=== PATIENT | male | born 1995 | race Caucasian/White ===

== ENCOUNTER 2022-04-14 12:23 | Emergency (ER) | payer BC, SELFPAY ==
[2022-04-14 14:06] VITALS: BP 163/86; PULSE 106; RESP 16; TEMP 37.7; O2SAT 97
--- NOTE | 2022-04-14 14:44 | ED.URI ---
HPI - URI/Sore Throat General Chief Complaint: Upper Respiratory Infection Stated Complaint: pink eye, sore throat, cough,fever Time Seen by Provider: 04/14/22 14:40 History of Present Illness HPI Narrative: 26-year-old male presented for complaint of sore throat and fever for 5 days. Endorses occasional cough and decreased appetite. Endorses at the onset of fever of 103, today at home was 100.4. He denies sick contacts. He denies shortness of breath, wheezing, nausea, vomiting or diarrhea. Patient also diagnosed with pink eye via telemed and is taking abx eye drops. Related Data Home Medications Medication Instructions Recorded Confirmed insulin pump cart,cont inf,BT 04/14/22 04/14/22 (Omnipod Dash Pods (Gen 4) subcutaneous cartridge) ofloxacin 0.3 % eye drops 1 drp EACH EYE DAILY 04/14/22 04/14/22 Allergies Allergy/AdvReac Type Severity Reaction Status Date / Time No Known Allergies Allergy Verified 04/14/22 14:10 Review of Systems Review of Systems: per HPI Exam Narrative: GENERAL: Ill-appearing, no acute distress. EYES: conjunctivae clear ENT: Mucous membranes moist. TMs pearly hinojosa with normal light reflex bilaterally; no tragal tenderness. Oropharynx erythematous Tonsils enlarged and without exudate. No drooling, no hoarseness, no trismus, uvula midline. No tripod positioning, hot potato voice, or soft palate swelling. NECK: Supple. No lymphadenopathy CHEST: Clear to auscultation, breath sounds equal. No respiratory distress, speaks in full sentences. HEART: Regular rate and rhythm. No murmur heard. SKIN: Warm, dry, no rash. NEURO: Alert and oriented x3. Course Course Emergency Course: Patient is aware of diagnosis, understands and agrees to treatment plan. Anticipatory guidance given. Patient agrees to follow-up as directed and is aware of reasons to seek care at the emergency department. Portions of this record may have been created with voice recognition software Level of Care: Express Care Visit Vital Signs Vital signs: Vital Signs Temperature 99.8 F H 04/14/22 14:06 Pulse Rate 106 H 04/14/22 14:06 Respiratory Rate 16 04/14/22 14:06 Blood Pressure 163/86 H 04/14/22 14:06 Pulse Oximetry 97 04/14/22 14:06 Oxygen Delivery Room Air 04/14/22 14:06 Temperature 99.8 F H 04/14/22 14:06 Pulse Rate 106 H 04/14/22 14:06 Respiratory Rate 16 04/14/22 14:06 Blood Pressure 163/86 H 04/14/22 14:06 Pulse Oximetry 97 04/14/22 14:06 Oxygen Delivery Room Air 04/14/22 14:06 MDM - URI/Sore Throat MDM Narrative Medical decision making narrative: flu negative; strep negative; result reviewed with pt. Advise supportive treatments. Patient is appropriate for outpatient treatment and follow-up. Differential Diagnosis Differential diagnosis: Likely upper respiratory infection, viral infection and pharyngitis Lab Data Labs: Influenza A Screen Negative Reference Range: Negative Influenza B Screen Negative Reference Range: Negative Strep Screen Presumptive Negative *(Reference Range: Negative)* Discharge Plan Discharge Clinical Impression: Upper respiratory infection Patient Disposition: Home, Self-Care Condition: Stable Instructions: Viral Syndrome (ED) Additional Instructions: Rapid strep swab was negative today You will be notified in a few days if the culture comes back positive for strep, and appropriate antibiotics will be called in at that time. if symptoms are due to a viral illness, it is not treated with antibiotics. Viral symptoms can be present for up to 10-14 days. Recommend Flonase spray and Zyrtec for sinus congestion Cough syrup may cause drowsiness; avoid driving or take it at night time. Tylenol every 8 hours as needed for pain/fev
== END 2022-04-14 15:28 | disposition home or self-care (01) ==
PROVIDERS: Emergency Provider Nurse Practitioner Family; PCP Internal Medicine
DX: J06.9 Acute upper respiratory infection, unspecified (principal)
CPT/HCPCS: 87081; 87804; 87880; 99213; G0463

== ENCOUNTER 2024-06-05 14:46 | Emergency (ER) | payer OTHER, SELFPAY ==
--- NOTE | ~2024-06-05 | XR_ITS ---
CHEST RADIOGRAPH, PA AND LATERAL CLINICAL HISTORY: acute cough . COMPARISON: None available TECHNIQUE: PA and lateral views of the chest. FINDINGS The cardiomediastinal silhouette is unremarkable. Patchy opacification of the left mid to upper lung field, findings suggesting an early infiltrate. The remainder of the lungs are clear. IMPRESSION: Early infiltrate within the left mid to upper lung field, as detailed above. Reviewed, dictated and finalized at location A. ER SECURITY ADMINISTRATOR
[2024-06-05 15:03] VITALS: BP 155/95; PULSE 107; RESP 16; TEMP 37.6; O2SAT 99
--- NOTE | 2024-06-05 15:24 | ED.URI ---
HPI - URI/Sore Throat General Chief Complaint: Upper Respiratory Infection Stated Complaint: COUGH/FEVER/BODY ACHES/HEADACHE Time Seen by Provider: 06/05/24 15:20 Source: patient, RN notes reviewed and old records reviewed Mode of arrival: ambulatory Limitations: no limitations History of Present Illness HPI Narrative: 28 year old male presents to [facility] care with complaints of having low grade fevers, body aches, cough and headache for the past 3 days. Patient reports that he had positive home test for influenza A on 05/17/2024 and received Tamiflu. Patient reports concern that he might have pneumonia and states that he had pneumonia the end of March. Patient is Type I diabetic and is on insulin pump.Patient reports that he has used his Albuterol nhaler. MD elicited complaint: fever, cough and other (headache, body aches,) Pertinent past history: pneumonia and other (Diabetic Type I) Onset (ago): day(s) (3) Severity: moderate Able to tolerate fluids by mouth: Yes Treatments prior to arrival: other (used Albuterol inhaler) Related Data Home Medications ?Medication ?Instructions ?Recorded ?Confirmed ?Last Taken ?Type insulin pump cart,cont inf,BT 04/14/22 06/05/24 Unknown History (Omnipod Dash Pods (Gen 4) subcutaneous cartridge) atorvastatin 40 mg tablet mg 06/05/24 Unknown History insulin aspart U-100 100 unit/mL 06/05/24 Unknown History subcutaneous solution (Novolog U-100 Insulin aspart) losartan .ROUTE 06/05/24 Unknown History semaglutide 7 mg tablet (Rybelsus) mg PO 06/05/24 Unknown History Allergies Allergy/AdvReac Type Severity Reaction Status Date / Time No Known Allergies Allergy Verified 06/05/24 14:59 Review of Systems Review of Systems: CONSTITUTIONAL: Reports malaise, chills, sweats, or fever. EYES: Denies visual changes, redness, or discharge. ENT: Reports rhinorrhea, congestion, sinus pain,no otalgia and no sore throat. CARDIOVASCULAR: Denies chest pain, palpitations, or edema. RESPIRATORY: Reports cough.? Denies acute dyspnea. GASTROINTESTINAL: Denies abdominal pain, nausea, vomiting, diarrhea SKIN: Denies rash or itching. MUSCULOSKELETAL: reports myalgia. NEUROLOGIC:Reports headache. All systems reviewed & are unremarkable except as noted in HPI and below PMFSH Past Medical History Medical History Pneumonia Hypertension Hyperlipidemia Type I diabetes mellitus Social History Social History (Updated 06/08/24 @ 08:03 by Danni Aguilar NP) Smoking status: Never smoker Alcohol intake: current Alcohol use details: rare social Substance use type: does not use Living arrangements: with family Gender identity (if verbalized by the patient): Male Comments At time of signature, agree with nursing past medical, surgical, social and family history. There is no relevant family history pertinent to the presenting complaint Exam Narrative: GENERAL: Ill-appearing, well-nourished, and in no acute distress. HEAD: Normocephalic EYES: PERRLA, conjunctivae clear ENT: Nares clear, turbinates edematous and erythematous, clear discharge. Mucous membranes moist. TM pearly hinojosa with dull light reflex bilaterally; no tragal tenderness. Oropharynx erythematous without lesions. Tonsils not enlarged and without exudate, no drooling, no hoarseness, no trismus, uvula midline.post nasal drainage noted NECK: Supple. No lymphadenopathy CHEST: Coarse breath sound left lobe, breath sounds equal. No wheezing, rhonchi, rales, or stridor. No respiratory distress, speaks in full sentences.dry cough SAO2 99% on room air no tachypnea HEART: Regular rate and rhythm. No murmur heard. SKIN: Warm, dry, no rash. NEURO: Alert and oriented x3. PSYCH: Normal mood and affect Course Course Emergency Course: Patient is aware of diagnosis, understands and agrees to treatment plan.? Anticipatory guidance given.? Patient agrees to follow-up as directed and is aware of reasons to seek care at the emergency department. Portions of this record may have been created with voice recognition software Level of Care: Express Care Visit Vital Signs Vital signs: Vital Signs Temperature 37.6 C 06/05/24 15:03 Pulse Rate 107 H 06/05/24 15:03 Respiratory Rate 16 06/05/24 15:03 Blood Pressure 155/95 H 06/05/24 15:03 Pulse Oximetry 99 06/05/24 15:03 Temperature 38.2 C H 06/05/24 15:28 Pulse Rate 107 H 06/05/24 15:03 Respiratory Rate 16 06/05/24 15:03 Blood Pressure 155/95 H 06/05/24 15:03 Pulse Oximetry 99 06/05/24 15:03 Reviewed MDM - URI/Sore Throat MDM Narrative Medical decision making narrative: Differential diagnosis considered: Walden virus, strep pharyngitis, allergic rhinitis, upper respiratory tract infection, sinusitis, rhinosinusitis, nasopharyngitis. viral pharyngitis, otitis media, otitis externa, pneumonia, bronchitis, viral cough syndrome, viral syndrome, and influenza.? Exam findings show no acute concerns or changes; patient is non-toxic appearing and is in no distress.? Patient is appropriate for outpatient treatment and follow-up. Differential Diagnosis Differential diagnosis: Likely upper respiratory infection, sinusitis, viral infection, bronchitis and other (COVID acute cough, pneumonia) Medical Records Attestation: I reviewed the patient's medical records. Lab Data Attestation: I reviewed the patient's lab results. Lab results narrative: COVID antigen negative Labs: Lab Results 06/05/24 Range/Units 15:29 POC SARS CoV-2 Ag Negative (Negative) Imaging Data Attestation: I personally reviewed and interpreted this imaging study as follows: My impression: early infiltrate within the left mid to upper lung [place] Radiologist's impression: [address] [place] [address] XRay Report Signed Patient: Jayro Castellanos : 1995 MR#: [id number] Age: 28 Acct:[id number] Loc: [id number] ADM Date: 06/05/24Attending Dr: Ordering Physician: Danni Aguilar APRN Date of Service: 06/05/24 Procedure(s): XR chest 2V Accession Number(s): [id number] cc: Arnie, Maurice Gabriel MD; Danni Aguilar APRN~ CHEST RADIOGRAPH, PA AND LATERAL CLINICAL HISTORY: acute cough . COMPARISON: None available TECHNIQUE: PA and lateral views of the chest. FINDINGS The cardiomediastinal silhouette is unremarkable. Patchy opacification of the left mid to upper lung field, findings suggesting an early infiltrate. The remainder of the lungs are clear. IMPRESSION: Early infiltrate within the left mid to upper lung field, as detailed above. Reviewed, dictated and finalized at location A. SCOPY REGISTERED NURSE Please be advised this is a medical document. It is intended for nopl-ky-ibdu communication. It is written in medical language and may contain unfamiliar abbreviations or verbiage. Medical documents are intended to carry relevant information, facts as evident, and the clinical opinion of the practitioner at the time of the encounter. This report may have been done utilizing a voice recognition system. Attempts have been made to correct errors. However, there may be uncorrected grammatical, spelling, and recognition errors present. The file time of this note does not necessarily represent the time of service. Dictated By: Mariola Agarwal MD 06/05/24 1609 Signed By: <Electronically signed by Mariola Agarwal MD in OV> Critical Care Time Critical Care Time Critical Care Time: No Discharge Plan Discharge Clinical Impression: Pneumonia Qualifiers: Pneumonia type: due to unspecified organism Laterality: left Lung location: upper lobe of lung Qualified Code(s): J18.9 - Pneumonia, unspecified organism Patient Disposition: Home, Self-Care Condition: Stable Instructions: Antibiotic Form, Pneumonia (ED) Additional Instructions: Increase fluids especially juices and water Fedo-pwq-lksxxod cough and cold medicine of your choice for your symptoms Tylenol or ibuprofen alternate that way you can be medicated every 4 hours as needed for temp or pain Cough tablets as directed for cough--do not bite, chew or suck on--swallow whole Continue your inhaler/nebulizer as directed check urine for ketones heat to the face 20-30 minutes 4-6 times a day for pain Salt water gargles, throat lozenges or throat sprays as desired Antibiotic as directed--finished the medication If your symptoms persist, change or worsen significantly before you can contact your personal physician then please, without delay, go to the emergency department for further evaluation. Follow-up with PCP in 7-10 days or sooner if needed Follow up with PCP soon in regards to your blood pressure which is elevated above threshold for referral. Blood pressure above 120/80 may indicate pre-hypertension. 155/90 monitor your fevers closely Patient Language: Georgian Prescriptions: New cefdinir 300 mg capsule 300 mg PO Q12H Qty: 20 0RF azithromycin 250 mg tablet See Rx Instructions .ROUTE .COMPLEX Qty: 6 0RF Rx Instructions: For 250 mg dose pack: take 500 mg today (day 1), then 250 mg for 4 days (days 2-5) benzonatate 200 mg capsule 200 mg PO TID PRN (Reason: cough) Qty: 20 0RF No Action (DME) Omnipod Dash Pods (Gen 4) Cartridge SUBCUT atorvastatin 40 mg tablet insulin aspart U-100 [Novolog U-100 Insulin aspart] 100 unit/mL solution losartan .ROUTE Rybelsus 7 mg tablet PO Follow-up/Referrals: Arnie,Bishnu Gabriel MD [Primary Care Provider] - Stand Alone Forms: Work/School Release IP Time of Disposition: 16:25 Quality [place] Coma Scale Eyes: Open Verbal: Oriented and Alert Motor: Follows Commands [place] Coma Total Score: 15
[2024-06-05 15:28] VITALS: TEMP 38.2
[2024-06-05 15:30] LABS: EDCOVIDSCREEN Negative (Negative)
--- NOTE | 2024-06-05 16:36 | PC.NURSE ---
1611 Patient notified waiting for CXR report; patient lying on stretcher-resting. Blood sugar 202 per pts continuous glucose monitoring.
== END 2024-06-05 16:35 | disposition home or self-care (01) ==
PROVIDERS: Emergency Provider Registered Nurse; PCP Internal Medicine
DX: J18.9 Pneumonia, unspecified organism (principal); Z20.822 Contact with and (suspected) exposure to COVID-19; I10 Essential (primary) hypertension; E78.5 Hyperlipidemia, unspecified; E10.9 Type 1 diabetes mellitus without complications; Z79.4 Long term (current) use of insulin; Z96.41 Presence of insulin pump (external) (internal)
CPT/HCPCS: 71046; 87426; 99213; G0463

== ENCOUNTER 2024-07-30 12:21 | Emergency (ER) | payer OTHER, SELFPAY ==
--- NOTE | ~2024-07-30 | XR_ITS ---
EXAMINATION: XR chest 2V DATE: 07/30/2024 13:00 INDICATION: One week of cough TECHNIQUE: PA and lateral views of the chest were obtained. COMPARISON: Chest radiograph dated 06/05/2024 FINDINGS: The lungs are clear with no focal airspace opacities, pulmonary edema, pleural effusion or pneumothor ax. The cardiomediastinal silhouette is normal. Visualized bones and soft tissues are unremarkable. IMPRESSION: 1. No acute cardiopulmonary disease. Reviewed, dictated and finalized at location A.
--- NOTE | 2024-07-30 12:53 | PC.NURSE ---
1250 Blood sugar 268 while in triage via insulin pump.
[2024-07-30 13:22] VITALS: BP 129/84; PULSE 81; RESP 20; TEMP 36.4; O2SAT 98
--- NOTE | 2024-07-30 15:11 | ED.URI ---
HPI - URI/Sore Throat General Chief Complaint: Upper Respiratory Infection Stated Complaint: COUGH/CONGESTION Time Seen by Provider: 07/30/24 12:46 Source: patient and RN notes reviewed Mode of arrival: ambulatory Limitations: no limitations History of Present Illness HPI Narrative: Patient presents today with a one-week history of productive cough, fatigue, sore throat. Denies fever or shortness of breath. He has tried no retm-kph-rehjrmo treatment prior to arrival. Patient is insulin-dependent diabetic. Current blood sugar on his continuous monitor is 268. 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 Patient has history of 2 episodes of pneumonia in the last 6, last was 2 months ago. Related Data Home Medications ?Medication ?Instructions ?Recorded ?Confirmed ?Last Taken ?Type insulin pump cart,cont inf,BT 04/14/22 06/05/24 Unknown History (Omnipod Dash Pods (Gen 4) subcutaneous cartridge) atorvastatin 40 mg tablet mg 06/05/24 Unknown History insulin aspart U-100 100 unit/mL 06/05/24 Unknown History subcutaneous solution (Novolog U-100 Insulin aspart) losartan .Route 06/05/24 Unknown History semaglutide 7 mg tablet (Rybelsus) mg PO 06/05/24 Unknown History Allergies Allergy/AdvReac Type Severity Reaction Status Date / Time No Known Allergies Allergy Verified 07/30/24 12:48 Review of Systems Review of Systems: CONSTITUTIONAL: Denies body aches, fever, chills, or sweats.+ fatigue EYES: Denies visual changes, redness, or discharge. ENT: Denies rhinorrhea, congestion, or otalgia.+ sore throat CARDIOVASCULAR: Denies chest pain, palpitations, or edema. RESPIRATORY: Denies dyspnea.+ cough GASTROINTESTINAL: Denies abdominal pain, nausea, vomiting, or diarrhea. GENITOURINARY: Denies dysuria or hematuria. SKIN: Denies rash, itching, or wounds. MUSCULOSKELETAL: Denies back pain, joint pain, or myalgia. NEUROLOGIC: Denies headache, numbness, tingling, or weakness. PSYCH: Denies depression or anxiety. [facility] Past Medical History Medical History Pneumonia Hypertension Hyperlipidemia Type I diabetes mellitus Social History Social History Smoking status: Never smoker Alcohol intake: current Alcohol use details: rare social Substance use type: does not use Living arrangements: with family Gender identity (if verbalized by the patient): Male Comments At time of signature, I have reviewed and agree with nursing past medical, surgical, social and family history unless otherwise noted. Please see nursing chart for further information. There is no relevant family history pertinent to the presenting complaint Exam Narrative: GENERAL: Mildly ill-appearing, well-nourished, and in no acute distress. Slightly pale HEAD: Normocephalic, atraumatic. EYES: EOMI. No redness or drainage. Conjunctivae normal. ENT: Mucous membranes pink and moist. Nares clear. No rhinorrhea. TMs normal bilaterally. Throat normal. Uvula midline. NECK: Normal AROM. Supple. No lymphadenopathy. CHEST: No respiratory distress. Few slight crackles in RLL, otherwise clear. HEART: Regular rate and rhythm. No murmur appreciated. EXTREMITIES: Normal range of motion. No edema. SKIN: Warm, dry, no rash. Capillary refill normal. Normal skin turgor. NEURO: No focal deficits. Alert and oriented x3. Gait steady. PSYCH: Normal affect. No signs of depression or anxiety. Course Course Level of Care: Express Care Visit Vital Signs Vital signs: Vital Signs Temperature 97.6 F 07/30/24 13:22 Pulse Rate 81 07/30/24 13:22 Respiratory Rate 20 07/30/24 13:22 Blood Pressure 129/84 07/30/24 13:22 Pulse Oximetry 98 07/30/24 13:22 Temperature 97.6 F 07/30/24 13:22 Pulse Rate 81 07/30/24 13:22 Respiratory Rate 20 07/30/24 13:22 Blood Pressure 129/84 07/30/24 13:22 Pulse Oximetry 98 07/30/24 13:22 Reviewed MDM - URI/Sore Throat MDM Narrative Medical decision making narrative: Chest x-ray negative. Symptoms likely viral in etiology. Discussed starting some Mucinex to help break up chest congestion as well as taking Tylenol for discomfort. Anticipatory guidance given. ED precautions given. Differential Diagnosis Differential diagnosis: Likely upper respiratory infection, viral infection, bronchitis and other (Pneumonia) Imaging Data Radiologist's impression: ITS Impressions Chest X-Ray 07/30/24 13:07 IMPRESSION: 1. No acute cardiopulmonary disease. Critical Care Time Critical Care Time Critical Care Time: No Discharge Plan Discharge Clinical Impression: Acute lower respiratory infection Patient Disposition: Home Condition: Stable Instructions: Acute Bronchitis (ED) Additional Instructions: Your chest x-ray is negative for pneumonia. Your symptoms are likely due to a viral illness, which is not treated with antibiotics. Virus symptoms can last for up to 7-14 days. Take Tylenol for pain or fever. Consider starting some Mucinex to help break up any chest congestion. Rest and stay hydrated. Follow up with your PCP in 3-5 days if symptoms are not improving. Go to the ER immediately if you develop a new onset fever greater than 100.3, shortness of breath, chest pain, difficulty swallowing, or any other concerning symptoms. Your blood pressure was elevated above 120/80 today at Urgent Care. This puts you above the threshold for follow up. Please schedule a followup visit with your personal physician as soon as possible, for further evaluation and treatment. Even blood pressure exceeding 120/80 may indicate pre-hypertension. Patient Language: Trinidadian Prescriptions: No Action (DME) Omnipod Dash Pods (Gen 4) Cartridge SUBCUT atorvastatin 40 mg tablet insulin aspart U-100 [Novolog U-100 Insulin aspart] 100 unit/mL solution losartan .Route Rybelsus 7 mg tablet PO Follow-up/Referrals: Arnie,Bishnu Gabriel MD [Primary Care Provider] - Time of Disposition: 13:21
== END 2024-07-30 13:26 | disposition home or self-care (01) ==
PROVIDERS: Emergency Provider Nurse Practitioner; PCP Internal Medicine
DX: J22 Unspecified acute lower respiratory infection (principal); I10 Essential (primary) hypertension; E78.5 Hyperlipidemia, unspecified; E10.9 Type 1 diabetes mellitus without complications; Z79.4 Long term (current) use of insulin
CPT/HCPCS: 71046; 99213; G0463

== ENCOUNTER 2025-02-03 16:10 | Outpatient (CLI) | payer OTHER, SELFPAY ==
--- NOTE | ~2025-02-03 | XR_ITS ---
EXAMINATION: XR chest 2V, 02/03/2025 16:19 CDT HISTORY: Encounter for general adult medical examination with abnorma COMPARISON: No comparisons available. Technique: 2 views obtained. Findings: The lungs are clear, no effusion. No pneumothorax. Heart is normal size. Mediastinal and hilar contours are within normal limits. Bony thorax no acute abnormality. Impression: No acute cardiopulmonary abnormality. Reviewed, dictated and finalized at location P. Impression: No acute cardiopulmonary abnormality.
== END 2025-02-03 16:11 | disposition home or self-care (01) ==
LOC: MICIMG 16:12
PROVIDERS: PCP Internal Medicine; Visit Provider Internal Medicine
DX: Z00.01 Encounter for general adult medical examination with abnormal findings (principal); J20.6 Acute bronchitis due to rhinovirus; J06.9 Acute upper respiratory infection, unspecified; J02.9 Acute pharyngitis, unspecified; Z96.41 Presence of insulin pump (external) (internal); G47.61 Periodic limb movement disorder; E78.2 Mixed hyperlipidemia; Z79.4 Long term (current) use of insulin
CPT/HCPCS: 71046